=== PATIENT | male | born 1940 | race Caucasian/White ===

== ENCOUNTER 2016-07-20 12:54 | Inpatient (IN) | payer MEDICARE, BC ==
--- NOTE | ~2016-07-20 | EKG ---
PATIENT: BANDAR SANTANA UNIT #: [id number] Ventricular Rate: 84 BPM Atrial Rate: 84 BPM P-R Interval: 176 ms QRS Duration: 90 ms Q-T Interval: 368 ms QTC Calculation(Bezet): 434 ms P [place]: 31 degrees Calculated R [place]: -20 degrees Calculated T [place]: 44 degrees Diagnosis Line: Normal sinus rhythm Diagnosis Line: Normal ECG Diagnosis Line: No previous ECGs available Diagnosis Line: Confirmed by SHANTAL REYNA MD ([id number]) on Diagnosis Line: 07/24/2016 3:12:04 PM INTERPRETING MD: AXEL MARLEY
--- NOTE | ~2016-07-20 | HP ---
Unit #: [id number] #: [id number] Patient: BANDAR SANTANA [id number] [address] [place], [place] [address] [id number] I MR#: [id number] NAME: BANDAR SANTANA ROOM: [address]28 Age: 75 Sex: M Admission Date: 07/20/2016 : 1940 Attending Physician: Sunni Schwartz M.D. Primary Care Physician: Preston Reynolds M.D. HISTORY AND PHYSICAL CHIEF COMPLAINT Increasing bilateral lower extremity edema for 3 weeks, shortness of air with exertion for months and could not walk today. HISTORY OF PRESENT ILLNESS This is a 75-year-old gentleman who has history of diabetes, gout, benign prostatic hypertrophy, arthritis, hypertension, sleep apnea cannot tolerate CPAP, chronic kidney disease. He actually presented yesterday to [facility] [place] ER with chief complaint of having bilateral lower leg and feet swelling for 3 weeks, shortness of air with exertion. He was recently seen by a kidney doctor. He was started on hydrochlorothiazide which was discontinued. The patient was started on Norvasc which also has been stopped. He was discharged home yesterday from the [facility] [place] from the emergency room to workup as an outpatient. Was given allopurinol 300 mg but he said he could not walk, he is not able to function and increasing lower extremity edema. He came to the ER. On workup in the ER, his BNP was mildly elevated at 185, uric acid 8.3, BUN 26, creatinine 1.7. He is being admitted for further workup and evaluation. He denies fever, denies chest pain, denies abdominal pain, nausea or vomiting, dysuria, melena. He has gained weight also but denies any other complaints. PAST MEDICAL HISTORY 1. History of chronic kidney disease. 2. Diabetes. 3. History of gout. 4. Benign prostatic hypertrophy. 5. Arthritis. 6. Hypertension. 7. Sleep apnea, cannot tolerate CPAP. 8. History of obesity. 9. History of renal cancer with previous right nephrectomy. PAST SURGICAL HISTORY 1. History of right nephrectomy. 2. Bladder stone removal. 3. History of cystoscopy with TURP. 4. History of tonsillectomy. HOME MEDICATIONS 1. Glipizide ER 2.5 mg daily. 2. Vitamin D2 50,000 every week. 3. Colchicine 0.6 mg daily. 4. Coreg 3.125 b.i.d. Unit #: [id number] #: [id number] Patient: BANDAR SANTANA SOCIAL HISTORY Denies smoking, denies alcohol, denies illicit drug use. FAMILY HISTORY No pertinent family history. REVIEW OF SYSTEMS CONSTITUTIONAL: No fever, no chills. Positive for weight gain. HEENT: Negative. CARDIOVASCULAR: No chest pain. Positive for increasing lower extremity swelling for 3 weeks. PULMONARY: Positive for shortness of breath on exertion but no wheezing. GASTROINTESTINAL: No nausea, no vomiting, no diarrhea, no constipation. GENITOURINARY: Denies dysuria. MUSCULOSKELETAL: Reports bilateral leg pain, unable to ambulate. SKIN: No rash. PSYCHIATRIC: Normal mood and affect. PHYSICAL EXAMINATION VITAL SIGNS: Temperature 98, heart rate 88, respiratory rate 18, blood pressure 158/76, oxygen saturation 99% on room air. GENERAL: Middle-aged man lying in the bed, comfortably, currently not in any distress. He is alert, awake, oriented x4. HEENT: Normocephalic, atraumatic. Extraocular muscles are normal. Pupils equal, round, reactive to light and accommodation. NECK: Supple. No JVD. HEART: S1, S2. Regular rate and rhythm. 2/6 systolic murmur. LUNGS: Poor air entry. Bilaterally no rhonchi, no wheezing. ABDOMEN: Obese, soft, nontender, nondistended. Bowel sounds positive. EXTREMITIES: Edema positive up to the knees. NEUROLOGIC: No focal neurologic deficits. Cranial nerves II-XII intact. PSYCHIATRIC: Normal mood and affect. DIAGNOSTIC STUDIES LABORATORY: Chemistry sodium 138, potassium 4, chloride 105, CO2 is 24, BUN 26, creatinine 1.7, glucose 72. LFTs within normal limits. Albumin 4.2. White count 16, hemoglobin 12, hematocrit 40, platelets 248. BNP 185. Troponin less than 0.05. IMAGING: Chest x-ray shows 1) enlargement of cardiac size; 2) asymmetric interstitial thickening in right lung could be reflecting asymmetrical interstitial edema; 3) mild left basilar atelectasis. ASSESSMENT AND PLAN 1. Bilateral lower extremity edema. Will start the patient on IV diuretics. Will get 2D echo. Cardiology to evaluate. 2. Deconditioning, weakness, unable to ambulate. PT and OT to evaluate. 3. Leukocytosis. 4. Chronic kidney disease. 5. Diabetes. Continue glipizide, place on sliding scale. 6. History of gout. Increased uric acid level. Start patient on allopurinol. Continue colchicine p.r.n. 7. History of hypertension. Recently discontinued Diovan hydrochlorothiazide. Also, Norvasc. He continued Coreg. Ask Nephrology to evaluate. 8. Chronic kidney disease, stage 3. 9. Sleep apnea, intolerant to CPAP. 10. Obesity. Unit #: [id number] #: [id number] Patient: BANDAR SANTANA 11. DVT prophylaxis. Will place the patient on Lovenox renal dose. Dictated by Roberto Hendricks/anette TD: 07/20/2016 21:47 JOB #: [id number] HISTORY AND PHYSICAL Page 1 of 1 X X HISTORY AND PHYSICAL
--- NOTE | ~2016-07-20 | EKG ---
PATIENT: BANDAR SANTANA UNIT #: [id number] Ventricular Rate: 107 BPM Atrial Rate: 111 BPM QRS Duration: 96 ms Q-T Interval: 338 ms QTC Calculation(Bezet): 451 ms Calculated R [place]: 90 degrees Calculated T [place]: -19 degrees Diagnosis Line: Atrial fibrillation with rapid ventricular Diagnosis Line: response with PVC's Diagnosis Line: Rightward axis Diagnosis Line: Nonspecific ST and T wave abnormality Diagnosis Line: Abnormal ECG Diagnosis Line: When compared with ECG of 20-JUL-2016 15:18, Diagnosis Line: (unconfirmed) Diagnosis Line: Atrial fibrillation has replaced Sinus rhythm Diagnosis Line: Questionable change in QRS axis Diagnosis Line: Nonspecific T wave abnormality now evident in Diagnosis Line: Inferior leads Diagnosis Line: Confirmed by DAVID HAWKINS MD ([id number]) on Diagnosis Line: 07/24/2016 5:18:34 PM INTERPRETING MD: TERRENCE
--- NOTE | ~2016-07-20 | DS ---
Unit #: [id number] #: [id number] Patient: BANDAR SANTANA [id number] [address] [address] [id number] I MR#: [id number] NAME: BANDAR SANTANA ROOM: 47 Age: 75 Sex: M Admission Date: 07/21/2016 : 1940 Discharge Date: Attending Physician: Edel Greenfield M.D. Primary Care Physician: Preston Reynolds M.D. DISCHARGE SUMMARY DISCHARGE DIAGNOSES 1. Acute diastolic heart failure. 2. Acute kidney injury. 3. Chronic kidney disease, stage 2. 4. Acute gout, both knees. 5. Hypertension. 6. Diabetes mellitus type 2, uncontrolled. 7. Atrial fibrillation, new onset, with rapid ventricular rate. 8. Benign prostatic hypertrophy. 9. Arthritis. 10. Sleep apnea, cannot tolerate CPAP. 11. Obesity. 12. History of renal cancer with a previous right nephrectomy. 13. Paroxysmal atrial fibrillation. ALLERGIES None. DISCHARGE MEDICATIONS 1. Prednisone tapering dose. 2. Coreg 6.25 p.o. b.i.d. 3. MiraLAX 17 g daily. 4. Lasix 40 daily. 5. Allopurinol 200 daily. 6. Colchicine 0.6 daily. 7. Lortab 5 mg q.8 p.r.n. pain. 8. Potassium 10 mEq daily. 9. Glucotrol XL 2.5 mg daily. 10. Vitamin D 50,000 units every week. 11. Coumadin 2.5 mg p.o. daily except Saturday. HOSPITALIZATION COURSE 75-year-old admitted because of shortness of breath and leg swelling. Acute diastolic heart failure: Patient received diuretics. Currently compensated. Continue with Lasix. No lisinopril or BERNARDA inhibitor or ARB because of acute kidney injury. Acute kidney injury with history of chronic kidney disease stage 2: Patient received diuretics, most likely from congestive heart failure. Also, patient had diabetes and hypertension. Currently, creatinine is 2.0 and stable. Acute gout, mostly bilateral knees: The patient received colchicine, Unit #: [id number] #: [id number] Patient: BANDAR SANTANA allopurinol and prednisone and Lortab. Currently, pain better. Able to tolerate ambulation. Atrial fibrillation, paroxysmal, new onset, with rapid ventricular rate: Patient was given Lovenox and Coreg. Currently, rate controlled, in sinus rhythm. Continue with Coumadin. Patient received Lovenox during the hospital course. Patient needs PT/INR checked on 07/30/2016. Patient will have Coumadin daily except Saturday. Patient will follow PCP or Dr. Zendejas with results. DIAGNOSTIC STUDIES IMAGING: Chest x-ray shows interstitial edema. LABORATORY: Glucose 93, WBC 15.5, hemoglobin 12.5, platelets 305, sodium 135, potassium 4.9, creatinine 2.0, TSH 2.06, BNP 185. Patient will be discharged home with home health. Follow with primary physician in one week time. Follow with Dr. Zendejas as advised. The patient needs BMP checked in one week time and follow with Dr. Jameson's office. Patient needs PT/INR on 07/30/2016. Follow with PCP or Dr. Zendejas with the results. Follow with Dr. Zendejas in six to eight weeks time. Discharge time taken is 32 minutes. Dictated by... Roberto Payne TD: 07/24/2016 11:03 JOB #: [id number] DISCHARGE SUMMARY Page 1 of 1 X Edel Greenfield MD X DISCHARGE SUMMARY
--- NOTE | ~2016-07-20 | CO ---
Unit #: [id number] #: [id number] Patient: BANDAR SANTANA [id number] [address] [place], [place] [address] [id number] I MR#: [id number] NAME: BANDAR SANTANA ROOM: 47 Age: 75 Sex: M Admission Date: 07/20/2016 : 1940 Attending Physician: Edel Greenfield M.D. Primary Care Physician: Preston Reynolds M.D. CONSULTATION REPORT REASON FOR CONSULTATION Dyspnea. HISTORY OF PRESENT ILLNESS This is a 75-year-old white male, who presented to the hospital with a complaint of bilateral lower extremity edema and shortness of breath. He said 3 weeks ago, he went to his collections analyst Dr. العلي and valsartan/hydrochlorothiazide was discontinued, because of worsening renal function. He was started on amlodipine. He went to [facility] Emergency Room on 07/19/2016, because of lower extremity edema. His BNP at that time was 827 with troponin 0.01. The patient was discharged home and was told to follow up with Cardiology. Amlodipine and allopurinol were discontinued and the patient was given a prescription for carvedilol. He was told he had a heart murmur by his primary care physician earlier this week and was to see a engineering design supervisor. The patient's BNP is 185. Creatinine has increased from 1.7 to 2.0. He has been treated with IV diuretics. Echocardiogram was done this admission, but it is currently pending. Troponin was negative. He denies any symptoms of angina. Denies paroxysmal nocturnal dyspnea, orthopnea, or leg edema. His presenting electrocardiogram shows normal sinus rhythm; however, rhythm strips show intermittent atrial fibrillation. He has risk factors for ischemic heart disease that includes hypertension, diabetes, and obesity. He has had no prior cardiac testing in the past. PAST MEDICAL HISTORY 1. Hypertension. 2. Diabetes mellitus, type 2. 3. Obstructive sleep apnea, intolerant to CPAP. 4. Chronic kidney disease. 5. BPH. 6. Bladder stones. 7. Right nephrectomy for renal cancer. 8. Osteoarthritis. 9. Gout. 10. Obesity. 11. Lifelong nonsmoker. PAST SURGICAL HISTORY 1. Right nephrectomy on 07/18/2015 at [facility]. 2. TURP. 3. Laser bladder stone removal in 2014. 4. Tonsillectomy. Unit #: [id number] #: [id number] Patient: BANDAR SANTANA SOCIAL HISTORY The patient is and retired. He has never smoked. He denies illicit drug or alcohol use. FAMILY HISTORY Negative for coronary artery disease. ALLERGIES No known drug allergies. HOME MEDICATIONS Glipizide ER 2.5 mg daily, vitamin D2 50,000 units weekly, colchicine 0.6 mg daily, carvedilol 3.125 mg b.i.d. REVIEW OF SYSTEMS CONSTITUTIONAL: Negative for fever or chills. Has no weight gain or weight loss. HEENT: No headache, hearing or vision changes, difficulty with swallowing. Negative for dizziness. CARDIOVASCULAR: Has no symptoms of angina. Denies palpitations. No paroxysmal nocturnal dyspnea or orthopnea. No syncope or near syncope. RESPIRATORY: Reports dyspnea at rest and on exertion. No cough or hemoptysis. GASTROINTESTINAL: No abdominal pain, nausea, or vomiting. No constipation or melena. EXTREMITIES: Positive for lower extremity edema. PHYSICAL EXAMINATION VITAL SIGNS: Blood pressure 95/48, heart rate 105, temperature 98, BMI 34. GENERAL: This is a pleasant 75-year-old white male, who is in no acute respiratory distress. NEUROLOGIC: He is awake, alert, and oriented. There are no focal weaknesses. NECK: Trachea is midline. No thyromegaly or lymphadenopathy. No jugular venous distention. HEART: S1 and S2. Heart sounds are normal. No murmurs, rubs, or clicks. Irregularly irregular rhythm. LUNGS: Diminished breath sounds both lungs, right greater than left. ABDOMEN: Soft and obese with bowel sounds are present. EXTREMITIES: With 1 to 2+ leg edema. DIAGNOSTIC STUDIES LABORATORY RESULTS: Glucose 125, BUN 28, creatinine 2.0. Sodium 135, potassium 3.8, BNP 185. Troponin less than 0.05. White count 19.1, hemoglobin 13.3, hematocrit is 41.4, and platelet count is 243. IMAGING STUDIES: Chest x-ray shows enlargement of cardiac silhouette, now [id number] in size compared to 06/09/2015; asymmetric interstitial thickening of the right lung, may reflect asymmetric interstitial edema. Mild left bibasilar atelectasis. CARDIOVASCULAR STUDIES: EKG; normal sinus rhythm, rate of 84 beats per minute with low-voltage QRS. There is poor R-wave progression. Rhythm strip shows intermittent episodes of atrial fibrillation with occasional premature ventricular complexes. Unit #: [id number] #: [id number] Patient: BANDAR SANTANA IMPRESSION 1. Dyspnea, questionable etiology. 2. Bilateral lower extremity edema, questionable secondary to Norvasc versus congestive heart failure. 3. Paroxysmal atrial fibrillation. 4. Hypertension. 5. Diabetes mellitus, type 2. 6. Chronic kidney disease, stage 3. 7. Leukocytosis. 8. Recent right nephrectomy for renal cancer. PLAN 1. Cardiology was consulted for evaluation of dyspnea. The patient most likely has cardiomyopathy. We will review echocardiogram. 2. Anticoagulate the patient for paroxysmal atrial fibrillation with Lovenox. 3. We will check with renal about cardiac catheterization. 4. No BERNARDA inhibitor or ARB for cardiomyopathy, because of acute on chronic kidney disease. 5. TSH and lipid profile will be obtained. 6. Repeat EKG. 7. We will follow the patient with you. Thank you for allowing us to assist with this patient's care. Dictated by... Elena Kaur/aubrey TD: 07/21/2016 16:07 JOB #: [id number] CC: Preston Reynolds M.D. CONSULTATION REPORT Page 1 of 1 X Trevor Mcknight APRN X CONSULTATION REPORT
--- NOTE | ~2016-07-20 | A ---
[facility] Nutrition Therapy DATE: 07/24/16 Patient: BANDAR SANTANA Physician: KATHY Address: [address] Room/Bed: [address] [place] [address], Zip: [place] [address] Admit Date: 07/21/16 Date of : [birth year] Height: 5 10 Weight: 239 108.8 NUTRITIONAL ASSESSMENT: REASON: CONSULT RE: RENAL/ HH DIET EDUCATION PMH: CKD, DM, gout, BPH, arthritis, HTN, renal cancer s/p right nephrectomy Anthropometrics: Ht: 5'10" Wt: 108.8 kg BMI: 34.4 Assessment: Chart reviewed, events noted. RD consulted to provide renal/ HH diet education. RD spoke with RN on 07/23 and instructed RN on how to print materials for the pt. RD followed up with the pt today (07/24), and provided verbal renal/ DM/ HH diet education. Pt reports that he and his have been implementing healthier dietary choices at home. Pt was interactive in the diet education, asking questions throughout. RD provided additional printed materials and encouraged the pt to contact RD with any further questions. Recommendations: 1. Pt to follow a renal/ consistent carbohydrate/ heart healthy diet as instructed by RD. 2. Pt would benefit from seeing an outpatient RD for follow up and accountability. Please contact RD for any further nutritional needs. Respectfully, HENRY DOLL RD, LD [facility] cc: client file
--- NOTE | ~2016-07-20 | CR72 ---
[facility] A Service of [facility] & [facility] RADIOLOGY TEXT RESULTS PATIENT: BANDAR SANTANA LOCATION: [place] [address] : [birth year] UNIT #: [id number] AGE: [address]: Edel Greenfield MD SEX: M ORDER DR: [id number] [facility] [address] [facility]. [place], [place] [address] [id number] MR#: [id number] Acc #: [id number] NAME: BANDAR SANTANA : 1940 SEX: M STUDY DATE/TIME: 07/20/2016 15:00 UNIT: [facility] ROOM: STUDY DESCRIPTION: CR Chest Single View Portable Attending Physician: Karla Almeida M.D. Ordering Physician: Karla Almeida M.D. Primary Care Physician: Preston Reynolds M.D. MEDICAL IMAGING REPORT This report is preliminary unless electronic signature is present EXAM AP portable chest, 07/20/2016. HISTORY Foot and leg edema, shortness of breath and hypertension. Symptoms present for 1 week. History of right nephrectomy. COMPARISON PA and lateral chest, 06/09/2015. FINDINGS Asymmetric interstitial thickening is present particularly in the right lung, which may represent atypical interstitial edema. No pleural effusion is seen. There is hwqa-fq-qhrpenmn cardiac enlargement which appears new compared to the PA and lateral chest radiograph from 06/09/2015. Mild focal left basilar atelectasis. Degenerative spurring in the thoracic spine. No pneumothorax. IMPRESSION 1. Interval enlargement of the cardiac silhouette now mild to moderate in size, compared to 06/09/2015. 2. Asymmetric interstitial thickening in the right lung. Constellation of findings may reflect changes of asymmetric interstitial edema. Correlate clinically. 3. No visible pleural effusion. 4. Mild left basilar atelectasis. Dictated by... Shefali Salgado M.D. THIS IS AN ELECTRONICALLY VERIFIED REPORT Shefali Salgado M.D. at 07/24/2016 8:40 AM [facility] A Service of [facility] RADIOLOGY TEXT RESULTS PATIENT: BANDAR SANTANA LOCATION: [facility] 476[address]01 : 40 UNIT #: [id number] AGE: [address]: Edel Greenfield MD SEX: M ORDER DR: Yumiko TD: 07/20/2016 17:58 JOB #: [id number] MEDICAL IMAGING REPORT Page 1 of 1 COPY
[2016-07-20 15:40] LABS: BASOPHIL# 0.1 X10e3 (0-0.3); BASOPHIL% 0.6 % (0-2.5); EOSINOPHIL# 0.2 X10e3 (0-0.7); EOSINOPHIL% 1.4 % (0.0-7.0); HEMATOCRIT 40.1 % (38.0-50.0); HEMOGLOBIN 12.9 gm/dL (13.0-16.0); LYMPHOCYTE# 2.4 X10e3 (1.0-3.5); LYMPHOCYTE% 14.7 % (17.0-45.0); MEAN CELL VOLUME 91.4 FL (83-96); MEAN CORPUSCULAR HEMOGLOBIN 29.4 PG (28-34); MEAN CORPUSCULAR HGB CONC 32.2 g/dL (30-36); MEAN PLATELET VOLUME 8.2 FL (6.5-11.5); MONOCYTE# 2.3 X10e3 (0-1.0); MONOCYTE% 13.7 % (3.0-12.0); NEUTROPHIL# 11.5 X10e3 (1.5-7.1); NEUTROPHIL% 69.6 % (40-75); PLATELET COUNT 248 X10e3 (140-420); RED BLOOD COUNT 4.39 X10e (3.90-5.60); RED CELL DISTRIBUTION WIDTH 15.2 % (11.0-15.5); WHITE BLOOD COUNT 16.6 X10e3 (4.0-10.5)
[2016-07-20 15:42] LABS: DIFF IND YES
[2016-07-20 15:46] LABS: POC - TROPONIN <0.05 ng/mL (<=0.05)
[2016-07-20 15:57] LABS: PLATELET ESTIMATE NORMAL (NORMAL); RBC NORMAL YES
[2016-07-20 16:53] LABS: ALBUMIN SERUM 4.2 g/dL (3.5-5.0); BILIRUBIN, DIRECT 0.2 mg/dL (0.0-0.2); BILIRUBIN,INDIRECT 1.1 mg/dL (0.0-0.9); BILIRUBIN,TOTAL 1.3 mg/dL (0.2-2.0); BUN/CREATININE RATIO 15.29; CALCIUM SERUM 9.1 mg/dL (8.4-10.2); CREATININE SERUM 1.7 mg/dL (0.6-1.4); GLOM FILT RATE Estimated 38.6 mL/min (>60); PROTEIN TOTAL SERUM 7.5 g/dL (6.0-8.3); URIC ACID 8.3 mg/dL (2.6-7.2)
[2016-07-20] MEDS ORDERED: GLUCOTROL XL2.5 MG PO (20:11)
[2016-07-20] MEDS ORDERED: VITAMIN D250000 UNIT PO (20:12)
[2016-07-20] MEDS ORDERED: COLCRYS0.6 M2 PO (20:13)
[2016-07-20] MEDS ORDERED: CARVEDILOL3.125 MG PO (20:14)
[2016-07-21 03:57] LABS: BASOPHIL# 0.1 X10e3 (0-0.3); BASOPHIL% 0.7 % (0-2.5); EOSINOPHIL# 0.1 X10e3 (0-0.7); EOSINOPHIL% 0.4 % (0.0-7.0); HEMATOCRIT 41.4 % (38.0-50.0); HEMOGLOBIN 13.3 gm/dL (13.0-16.0); LYMPHOCYTE# 2.1 X10e3 (1.0-3.5); LYMPHOCYTE% 10.8 % (17.0-45.0); MEAN CELL VOLUME 91.4 FL (83-96); MEAN CORPUSCULAR HEMOGLOBIN 29.4 PG (28-34); MEAN CORPUSCULAR HGB CONC 32.2 g/dL (30-36); MEAN PLATELET VOLUME 8.3 FL (6.5-11.5); MONOCYTE% 10.7 % (3.0-12.0); NEUTROPHIL# 14.8 X10e3 (1.5-7.1); NEUTROPHIL% 77.4 % (40-75); PLATELET COUNT 243 X10e3 (140-420); RED BLOOD COUNT 4.53 X10e (3.90-5.60); WHITE BLOOD COUNT 19.1 X10e3 (4.0-10.5)
[2016-07-21 03:58] LABS: DIFF IND NO
[2016-07-21 04:18] LABS: CALCIUM SERUM 9.1 mg/dL (8.4-10.2); GLOM FILT RATE Estimated 31.7 mL/min (>60); POTASSIUM 3.8 mmol/L (3.5-5.1)
[2016-07-21 12:43] LABS: URINE APPEARANCE CLEAR; URINE BILIRUBIN NEG (NEG); URINE BLOOD TRACE (NEG); URINE COLOR YELLOW; URINE GLUCOSE NEG (NEG); URINE KETONE NEG (NEG); URINE LEUKOCYTE ESTERASE NEG (NEG); URINE NITRATE NEG (NEG); URINE PROTEIN 2+ (NEG); URINE SPECIFIC GRAVITY 1.012 (1.003-1.035); URINE UROBILINOGEN 0.2 MG/DL (NEG)
[2016-07-21 12:46] LABS: URINE BACTERIA AUWI NEG (NEGATIVE); URINE SQUAMOUS EPITHELIAL CELL NONE SEEN /[HPF]; UWBCS1 AUWI 0-2 (0-5)
[2016-07-22 03:35] LABS: BASOPHIL# 0.1 X10e3 (0-0.3); EOSINOPHIL# 0.2 X10e3 (0-0.7); EOSINOPHIL% 1.9 % (0.0-7.0); HEMATOCRIT 36.5 % (38.0-50.0); HEMOGLOBIN 11.9 gm/dL (13.0-16.0); LYMPHOCYTE# 2.8 X10e3 (1.0-3.5); LYMPHOCYTE% 22.5 % (17.0-45.0); MEAN CELL VOLUME 90.6 FL (83-96); MEAN CORPUSCULAR HEMOGLOBIN 29.5 PG (28-34); MEAN CORPUSCULAR HGB CONC 32.6 g/dL (30-36); MEAN PLATELET VOLUME 8.6 FL (6.5-11.5); MONOCYTE# 1.4 X10e3 (0-1.0); MONOCYTE% 11.4 % (3.0-12.0); NEUTROPHIL# 7.9 X10e3 (1.5-7.1); NEUTROPHIL% 63.2 % (40-75); PLATELET COUNT 227 X10e3 (140-420); RED BLOOD COUNT 4.04 X10e (3.90-5.60); RED CELL DISTRIBUTION WIDTH 14.8 % (11.0-15.5); WHITE BLOOD COUNT 12.5 X10e3 (4.0-10.5)
[2016-07-22 03:36] LABS: DIFF IND NO
[2016-07-22 04:13] LABS: BUN/CREATININE RATIO 16.36; CALCIUM SERUM 8.5 mg/dL (8.4-10.2); CREATININE SERUM 2.2 mg/dL (0.6-1.4); GLOM FILT RATE Estimated 28.3 mL/min (>60); POTASSIUM 3.3 mmol/L (3.5-5.1)
[2016-07-23 03:55] LABS: HEMATOCRIT 37.2 % (38.0-50.0); HEMOGLOBIN 12.2 gm/dL (13.0-16.0); MEAN CELL VOLUME 89.7 FL (83-96); MEAN CORPUSCULAR HEMOGLOBIN 29.4 PG (28-34); MEAN CORPUSCULAR HGB CONC 32.8 g/dL (30-36); MEAN PLATELET VOLUME 8.5 FL (6.5-11.5); RED BLOOD COUNT 4.15 X10e (3.90-5.60); RED CELL DISTRIBUTION WIDTH 14.6 % (11.0-15.5); WHITE BLOOD COUNT 12.8 X10e3 (4.0-10.5)
[2016-07-23 04:18] LABS: BUN/CREATININE RATIO 20.43; CALCIUM SERUM 8.7 mg/dL (8.4-10.2); CREATININE SERUM 2.3 mg/dL (0.6-1.4); GLOM FILT RATE Estimated 26.8 mL/min (>60); POTASSIUM 4.2 mmol/L (3.5-5.1)
[2016-07-24 03:06] LABS: BASOPHIL# 0.1 X10e3 (0-0.3); BASOPHIL% 0.8 % (0-2.5); DIFF IND YES; EOSINOPHIL% 0.1 % (0.0-7.0); HEMOGLOBIN 12.5 gm/dL (13.0-16.0); LYMPHOCYTE# 2.4 X10e3 (1.0-3.5); LYMPHOCYTE% 15.4 % (17.0-45.0); MEAN CELL VOLUME 89.4 FL (83-96); MEAN CORPUSCULAR HEMOGLOBIN 29.4 PG (28-34); MEAN CORPUSCULAR HGB CONC 32.8 g/dL (30-36); MEAN PLATELET VOLUME 8.7 FL (6.5-11.5); MONOCYTE# 1.4 X10e3 (0-1.0); MONOCYTE% 9.2 % (3.0-12.0); NEUTROPHIL# 11.6 X10e3 (1.5-7.1); NEUTROPHIL% 74.5 % (40-75); PLATELET COUNT 305 X10e3 (140-420); RED BLOOD COUNT 4.25 X10e (3.90-5.60); RED CELL DISTRIBUTION WIDTH 14.4 % (11.0-15.5); WHITE BLOOD COUNT 15.5 X10e3 (4.0-10.5)
[2016-07-24 03:23] LABS: BUN/CREATININE RATIO 27.5; GLOM FILT RATE Estimated 31.7 mL/min (>60); POTASSIUM 4.1 mmol/L (3.5-5.1)
[2016-07-24 03:25] LABS: PLATELET ESTIMATE NORMAL (NORMAL)
[2016-07-24 03:26] LABS: RBC NORMAL YES; SMUDGE CELLS 4 /100
[2016-07-24] MEDS ORDERED: COREG6.25 MG PO (11:26)
[2016-07-24] MEDS ORDERED: MIRALAX17 G2 PO (11:37)
[2016-07-24] MEDS ORDERED: FUROSEMIDE40 MG PO (11:38)
[2016-07-24] MEDS ORDERED: ZYLOPRIM PO (11:39)
[2016-07-24] MEDS ORDERED: POTASSIUM CHLO10 ME1 PO (11:41)
[2016-07-24] MEDS ORDERED: COUMADIN2.5 MG PO (11:42)
[2016-07-24] MEDS ORDERED: PREDNISONE10 M1 PO (11:45)
[2016-07-24] MEDS ORDERED: LORTAB 5-325 M1 EACH PO (11:47)
== END 2016-07-24 14:09 | disposition home health service (06) | DRG 291 ==
LOC: CED 12:54 → CEDOF 20:38 → CED 20:38 → C4C 20:38 → CEDOF 22:42 → C4C 22:42 → CEDOF 07-21 20:10 → C4C 07-21 20:10
PROVIDERS: Emergency Medicine; Internal Medicine
DX: I13.0 Hypertensive heart and chronic kidney disease with heart failure and stage 1 through stage 4 chronic kidney disease, or unspecified chronic kidney disease (principal); I50.31 Acute diastolic (congestive) heart failure; N17.9 Acute kidney failure, unspecified; E11.22 Type 2 diabetes mellitus with diabetic chronic kidney disease; E11.65 Type 2 diabetes mellitus with hyperglycemia; I42.9 Cardiomyopathy, unspecified; J98.11 Atelectasis; Z79.84 Long term (current) use of oral hypoglycemic drugs; D72.829 Elevated white blood cell count, unspecified; E66.9 Obesity, unspecified; G47.33 Obstructive sleep apnea (adult) (pediatric); I48.0 Paroxysmal atrial fibrillation; N40.0 Benign prostatic hyperplasia without lower urinary tract symptoms; Z85.528 Personal history of other malignant neoplasm of kidney; M10.062 Idiopathic gout, left knee; M10.061 Idiopathic gout, right knee; E87.6 Hypokalemia; D64.9 Anemia, unspecified; I49.3 Ventricular premature depolarization; N18.2 Chronic kidney disease, stage 2 (mild); Z68.34 Body mass index [BMI] 34.0-34.9, adult
CPT/HCPCS: 36415; 71010; 80048; 80061; 80076; 81003; 82553; 82947; 83735; 83880; 84443; 84484; 84550; 85025; 85027; 85652; 93005; 93306; 97116; 97162; 99285; G8978-GP; G8979-GP; G8980-GP; J1650; J1815; J1940; J2270

== ENCOUNTER → 2016-10-09 | Outpatient (CLI) | payer MEDICARE, BC ==
[~2016-10-09] MED LIST: CARVEDILOL3.125 MG PO; COLCRYS0.6 M2 PO; COREG6.25 MG PO; COUMADIN2.5 MG PO; FUROSEMIDE40 MG PO; GLUCOTROL XL2.5 MG PO; LORTAB 5-325 M1 EACH PO; MIRALAX17 G2 PO; POTASSIUM CHLO10 ME1 PO; PREDNISONE10 M1 PO; VITAMIN D250000 UNIT PO; ZYLOPRIM PO
[2016-10-09 13:15] LABS: BUN/CREATININE RATIO 16.36; CALCIUM SERUM 9.5 mg/dL (8.4-10.2); CREATININE SERUM 2.2 mg/dL (0.6-1.4); GLOM FILT RATE Estimated 28.3 mL/min (>60)
== END | disposition home or self-care (01) ==
LOC: CLAB 11:35
PROVIDERS: Internal Medicine Cardiovascular Disease
DX: R60.9 Edema, unspecified (principal)
CPT/HCPCS: 36415; 80048